=== PATIENT | male | born 1965 | race Caucasian/White ===

== ENCOUNTER → 2016-10-16 | Outpatient (CLI) | payer BC ==
--- NOTE | 2016-10-16 20:31 | CT ---
EXAMINATION TYPE: CT urogram wo/w con DATE OF EXAM: 10/16/2016 COMPARISON: 07/21/2010 HISTORY: Bilateral flank pain and penile pain. History of renal stones. CT DLP: 3059.00 mGycm CONTRAST: Performed and without and with IV Contrast, patient injected with 100 mL of Omnipaque 300. CT Urography was performed with unenhanced followed by enhanced images of the kidneys, ureters and ur inary bladder. Delayed images were obtained. 3d reconstruction was performed at a separate work sta tion. FINDINGS: KIDNEYS/BLADDER: No hydronephrosis. No nephrolithiasis. Simple cyst with Hounsfield unit measuremen t of less than 3 measures 2.8 cm in greatest dimension and is unchanged from prior examination. Urina ry bladder is grossly unremarkable. LUNG BASES-: No visible nodule. No infiltrate. LIVER/GB: No calcified gallstones. Scattered simple cysts are noted within the liver. Biliary tree is of normal caliber. PANCREAS: No inflammation. No distinct mass. SPLEEN: No splenic enlargement. No lesion seen. ADRENALS: No nodule. No thickening. BOWEL: Normal appendix. Normal bowel caliber. No inflammation. GENITAL ORGANS: No gross abnormality. LYMPH NODES: No greater than 1cm abdominal or pelvic lymph nodes are appreciated. AORTA: No significant abnormality. OSSEOUS STRUCTURES: No significant abnormality is seen. OTHER: Right inguinal fat-containing hernia. IMPRESSION: 1. Simple cyst left kidney. No significant abnormality to account for the patient's symptoms. Correla te clinically. 2. Fat-containing right inguinal hernia. 3. Simple appearing hepatic cysts.
== END | disposition home or self-care (01) ==
LOC: RADCTMAIN 18:18
PROVIDERS: ATTEND Urology
DX: N28.1 Cyst of kidney, acquired (principal); K40.90 Unilateral inguinal hernia, without obstruction or gangrene, not specified as recurrent; K76.89 Other specified diseases of liver
CPT/HCPCS: 74178; 74400; Q9967

== ENCOUNTER 2019-01-10 12:19 | Emergency (ER) | payer BC ==
[2019-01-10] MEDS ORDERED: KETOROLAC 30 MG/ML 1 ML VIAL IVP STA (12:35)
[2019-01-10] MEDS ORDERED: SODIUM CHLORIDE 0.9% 1,000 ML IV STA ×2 (12:35→14:41)
[2019-01-10] MEDS ORDERED: MORPHINE SULFATE 4 MG/ML SYRINGE IV STA (12:46)
--- NOTE | 2019-01-10 12:49 | ED ---
General Adult HPI - General Chief complaint: Urogenital Stated complaint: POSS KIDNEY STONE Time Seen by Provider: 01/10/19 12:35 Source: patient, family Mode of arrival: wheelchair Limitations: no limitations - History of Present Illness Initial comments: Dictation was produced using [employer] dictation software. please excuse any gramma tical, word or spelling errors. Chief Complaint: 53-year-old male past medical history of nephrolithiasis and hypertension presents with right-sided flank pain. History of Present Illness: Patient is 53-year-old male who presents with chief complaint of right-sided flank pain. Patient states his symptoms began on Friday. States that his pain started in the right flank area. States pain is constant. Distal nauseous however has no vomiting. Patient has a history of kidney stones. Patient states he has past for kidney stones prior to this. He has seen a urologist in the past. Patient states his symptoms today are very different because the pain radiates up his right back and sometimes goes into his neck. No constitutional symptoms. The ROS documented in this emergency department record has been reviewed and confirmed by me. Those systems with pertinent positive or negative responses have been documented in the HPI. All other systems are other negative and/or noncontributory. PHYSICAL EXAM: General Impression: Alert and oriented x3, acute distress secondary to pain HEENT: Normocephalic atraumatic, extra-ocular movements intact, pupils equal and reactive to light bilaterally, mucous membranes moist. Cardiovascular: Heart regular rate and rhythm, S1&S2 audible, no murmurs, rubs or gallops Chest: Lungs clear to auscultation bilaterally, no rhonchi, no wheeze, no rales Abdomen: Bowel sounds present, abdomen soft, non-tender, non-distended, no organomegaly Musculoskeletal: Pulses present and equal in all extremities, no peripheral edema, positive CVA pain Motor: no focal deficits noted Neurological: CN II-XII grossly intact, no focal motor or sensory deficits noted Skin: Intact with no visualized rashes ED course: 53-year-old male presents with right-sided flank pain. He has a strong history of kidney stones. States his symptoms are significantly different from his usual symptoms. Upon arrival shows findings within acceptable limits. Patient is in acute distress. Symptoms are considerably different this time. Patient last CT was several years ago. Given patient's symptoms believe he would benefit from computed tomography scan today.Laboratory evaluation obtained. CBC, metabolic panel is unremarkable. Computed tomography scan of the abdomen and pelvis shows a 3 mm distal right ureteral calculus with hydronephrosis and hydroureter. There is simple-appearing hepatic and renal cysts. Is also diverticulosis of the colon. Patient told that he has these cyst that needs to be follow-up with by his primary care physician. Patient presents that there is been progression of the cyst that appeared increased compared to CT from the past. Patient reevaluated at bedside with dramatic improvement of symptoms. They're strong clinical suspicion that patient had passed stone and given analgesia and intravenous fluids. Urine study is sent for culture. Patient advised to follow-up with his urologist upon discharge. EKG interpretation: Ventricular rate 65, normal sinus rhythm,. Interval 136, QRS 94, QTC 432. No VA prolongation, no QTC prolongation, no ST or T-wave changes noted. Overall, this EKG is unremarkable - Related Data Home Medications Medication Instructions Recorded Confirmed Losartan Potassium 100 mg PO DAILY 01/10/19 01/10/19 Multivitamins, Thera [Multivitamin 1 tab PO HS 01/10/19 01/10/19 (formulary)] Allergies Allergy/AdvReac Type Severity Reaction Status Date / Time No Known Allergies Allergy Verified 01/10/19 13:04 Review of Systems ROS Statement: Those systems with pertinent positive or pertinent negative responses have been documented in the HPI. ROS Other: All systems not noted in ROS Statement are negative. Past Medical History Past Medical History: Hypertension Additional Past Medical History / Comment(s): kidney stones History of Any Multi-Drug Resistant Organisms: None Reported Additional Past Surgical History / Comment(s): shoulder surgery Past Psychological History: No Psychological Hx Reported Smoking Status: Never smoker Past Alcohol Use History: None Reported Past Drug Use History: None Reported General Exam Limitations: no limitations Course Vital Signs 01/10/19 12:28 Temperature 97.7 F Pulse Rate 70 Respiratory 20 Rate Blood Pressure 112/84 O2 Sat by Pulse 96 Oximetry Medical Decision Making - Lab Data Result diagrams: 01/10/19 12:57 01/10/19 12:57 Lab Results 01/10/19 01/10/19 Range/Units 12:57 12:57 WBC 9.8 (3.8-10.6) k/uL RBC 5.28 (4.30-5.90) m/uL Hgb 15.3 (13.0-17.5) gm/dL Hct 45.8 (39.0-53.0) % MCV 86.7 (80.0-100.0) fL MCH 29.0 (25.0-35.0) pg MCHC 33.5 (31.0-37.0) g/dL RDW 12.1 (11.5-15.5) % Plt Count 246 (150-450) k/uL Neutrophils % 65 % Lymphocytes % 23 % Monocytes % 7 % Eosinophils % 2 % Basophils % 1 % Neutrophils # 6.4 (1.3-7.7) k/uL Lymphocytes # 2.3 (1.0-4.8) k/uL Monocytes # 0.7 (0-1.0) k/uL Eosinophils # 0.2 (0-0.7) k/uL Basophils # 0.1 (0-0.2) k/uL Sodium 140 (137-145) mmol/L Potassium 3.5 (3.5-5.1) mmol/L Chloride 104 (98-107) mmol/L Carbon Dioxide 27 (22-30) mmol/L Anion Gap 9 mmol/L BUN 13 (9-20) mg/dL Creatinine 0.99 (0.66-1.25) mg/dL Est GFR (CKD-EPI)AfAm >90 (>60 ml/min/1.73 sqM) Est GFR (CKD-EPI)NonAf 86 (>60 ml/min/1.73 sqM) Glucose 122 H (74-99) mg/dL Calcium 9.8 (8.4-10.2) mg/dL Total Bilirubin 1.2 (0.2-1.3) mg/dL AST 25 (17-59) U/L ALT 32 (21-72) U/L Alkaline Phosphatase 97 (38-126) U/L Total Protein 7.6 (6.3-8.2) g/dL Albumin 4.3 (3.5-5.0) g/dL Disposition Clinical Impression: Kidney stone on right side Disposition: HOME SELF-CARE Condition: Good Instructions (If sedation given, give patient instructions): Kidney Stones (ED) Is patient prescribed a controlled substance at d/c from ED?: No Referrals: Sophia Sheriff MD [Primary Care Provider] - 1-2 days Thomas Chase MD [STAFF PHYSICIAN] - 1-2 days Time of Disposition: 15:18
[2019-01-10 13:06] LABS: Basophils # (A) 0.1 k/uL (0-0.2); Basophils % (A) 1 %; Eosinophils # (A) 0.2 k/uL (0-0.7); Eosinophils % (A) 2 %; HCT 45.8 % (39.0-53.0); HGB 15.3 gm/dL (13.0-17.5); Lymphocytes # (A) 2.3 k/uL (1.0-4.8); Lymphocytes % (A) 23 %; MCHC 33.5 g/dL (31.0-37.0); MCV 86.7 fL (80.0-100.0); Monocytes # (A) 0.7 k/uL (0-1.0); Monocytes % (A) 7 %; Neutrophils # (A) 6.4 k/uL (1.3-7.7); Neutrophils % (A) 65 %; Platelet Count 246 k/uL (150-450); RBC 5.28 m/uL (4.30-5.90); RDW 12.1 % (11.5-15.5); WBC 9.8 k/uL (3.8-10.6)
[2019-01-10] MEDS ORDERED: HYDROmorphone 0.5 MG/0.5 ML SYRINGE IVP STA (13:12)
[2019-01-10 13:16] LABS: ALT 32 U/L (21-72); AST 25 U/L (17-59); African American GFR (CKD) >90 (>60 ml/min/1.73 sqM); Albumin 4.3 g/dL (3.5-5.0); Alkaline Phosphatase 97 U/L (38-126); Anion Gap 9 mmol/L; Blood Urea Nitrogen 13 mg/dL (9-20); Calcium 9.8 mg/dL (8.4-10.2); Carbon Dioxide 27 mmol/L (22-30); Chloride 104 mmol/L (98-107); Glucose 122 mg/dL (74-99); Potassium 3.5 mmol/L (3.5-5.1); Sodium 140 mmol/L (137-145); Total Bilirubin 1.2 mg/dL (0.2-1.3); Total Protein 7.6 g/dL (6.3-8.2)
--- NOTE | 2019-01-10 14:09 | CT ---
EXAMINATION TYPE: CT abdomen pelvis w con DATE OF EXAM: 01/10/2019 REFERENCE: Previous study dated 10/16/2016 HISTORY: flank pain HISTORY: Rt flank pain with hematuria CT DLP: 1513.4 mGy Automated exposure control for dose reduction was used. TECHNIQUE: Helical acquisition through the abdomen and pelvis was obtained following the oral ingesti on of without Oral Contrast and following intravenous administration of 100 mL of Isovue 300. The radha a was reformatted in axial, coronal and sagittal projections. FINDINGS: There is minimal dependent atelectasis at the lung bases. There is no pleural or pericardi al fluid. The heart is not enlarged. Within the abdomen, there are several stable hepatic cysts. The spleen and gallbladder are normal. Both adrenal glands are normal. There is a stable 2.6 cm cyst in the lower pole of the left kidney. There are smaller cysts in the ri ght kidney. There is hydronephrosis and hydroureter on the right. There is a 3 mm calculus in the distal right ur eter. There is no significant retroperitoneal, iliac or inguinal adenopathy. The bladder is not distended. There are scattered diverticula throughout the left side of the colon. There is no radiographic evide nce of diverticulitis. Appendix is normal. Small bowel loops are normal. There is no free fluid and no free air identified. There is facet arthropathy in the lower lumbar fac ets. IMPRESSION: 1. 3 MM DISTAL RIGHT URETERIC CALCULUS WITH MODERATE ASSOCIATED HYDRONEPHROSIS AND HYDROURETER. 2. SIMPLE APPEARING HEPATIC AND RENAL CYSTS. 3. UNCOMPLICATED DIVERTICULOSIS OF THE SIGMOID: THAN LEFT SIDE OF THE COLON. 5.
[2019-01-10 15:43] LABS: Appearance,Urine Clear (Clear); Bilirubin,Urine Negative (Negative); Blood,Urine Large (Negative); Calcium Oxalate Crystals,Urine Occasional /hpf; Color,Urine Yellow; Glucose,Urine (UA) Negative (Negative); Ketones,Urine Negative (Negative); Leukocyte Esterase,Urine Negative (Negative); Mucus,Urine Many /hpf; Nitrite,Urine Negative (Negative); Protein,Urine Trace (Negative); RBC,Urine >182 /hpf (0-5); Squamous Epithelial Cell,Urine 1 /hpf (0-4); Urobilinogen,Urine <2.0 mg/dL (<2.0)
[2019-01-10 15:44] LABS: Specific Gravity,Urine >1.050 (1.001-1.035)
[2019-01-10 16:23] VITALS: BP 115/59; PULSE 78; RESP 18; TEMP 98.3
== END 2019-01-10 16:16 | disposition home or self-care (01) ==
LOC: EC 12:19
DX: N13.2 Hydronephrosis with renal and ureteral calculous obstruction (principal); N28.1 Cyst of kidney, acquired; K57.30 Diverticulosis of large intestine without perforation or abscess without bleeding; K76.89 Other specified diseases of liver; I10 Essential (primary) hypertension; Z79.899 Other long term (current) drug therapy
CPT/HCPCS: 36415; 93005; 80053; 85025; 81001; 87040; 87086; 74177; 99284; 96374; 96375; 96361 ×2; J1885; J1170; Q9967

== ENCOUNTER → 2019-05-20 | Outpatient (CLI) | payer BC ==
--- NOTE | 2019-05-21 05:12 | CT ---
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 Delayed images through the kidneys were obtaine d. Coronal/sagittal reconstructions performed. CT DLP: 3611 mGycm Automated exposure control for dose reduction was used. FINDINGS: CHEST: Heart normal size without pericardial effusion. Aorta normal caliber with variant direct takeoff of the left vertebral artery directly from the aorti c arch. No thoracic lymphadenopathy by CT size criteria. A 7 mm peripheral right lower lobe pulmonary nodule, axial image 39. Mild biapical pleural-parenchymal scarring. No consolidation or pleural effusion. ABDOMEN: Redemonstrated multiple hepatic cysts measuring up to 2.7 cm. Portal venous system is patent. No bili salbador ductal dilatation. Gallbladder, adrenal glands, and pancreas appear within normal limits. Spleen mildly enlarged at 14.4 cm. Tiny anterior hilar splenule is unchanged. Nonobstructive 4 mm right renal calculus as well as bilateral extrarenal pelves. Posterior medial left kidney mid to lower pole, redemonstrated 1.8 cm cystic cortical lesion with thi n internal septation, unchanged back to 07/22/2009. No dilated small bowel, free fluid, or free air. There are some scattered prominent retroperitoneal lymph nodes measuring up to 7 mm are unchanged soni k to 07/22/2009. Additional scattered nonenlarged mesenteric lymph nodes. Normal appendix. No significant stool burden. No pericolonic inflammatory change. PELVIS: Bladder urine distended. Mild prostatic calcifications. Prostate gland measures 5.57 mm wide. No abno rmal fluid collection in the pelvis or pelvic lymphadenopathy. Small fat-containing direct right ingu inal hernia unchanged. No abnormal fluid collection in the pelvis or pelvic lymphadenopathy. BONES: Mild degenerative changes of the hips. Facet arthropathy lower lumbar spine. Severe endplate Schmorl' s node of T11 is unchanged from 01/10/2019. No osseous destructive process. IMPRESSION: 1. SOLITARY NONSPECIFIC 7 MM RIGHT LOWER LOBE PULMONARY NODULE. FOLLOW-UP RECOMMENDED. AGAIN, THIS IS NONSPECIFIC BUT A METASTATIC PULMONARY NODULE IS NOT ENTIRELY EXCLUDED AT THIS TIME. 2. NO ADDITIONAL SUSPICIOUS FINDINGS TO SUGGEST METASTATIC DISEASE IN THE CHEST, ABDOMEN, OR PELVIS. 3. NONOBSTRUCTIVE 4 MM RIGHT RENAL CALCULUS, MILD SPLENOMEGALY (14.4 CM), AND STABLE 1. 8 CM MILDLY C OMPLEX LEFT RENAL CYST BACK TO 07/22/2009 SUGGESTING A BENIGN ETIOLOGY. SMALL FAT-CONTAINING RIGHT INGU INAL HERNIA.
== END | disposition home or self-care (01) ==
LOC: RADCTMAIN 15:34
PROVIDERS: ATTEND Ophthalmology
DX: C69.30 Malignant neoplasm of unspecified choroid (principal); K40.90 Unilateral inguinal hernia, without obstruction or gangrene, not specified as recurrent; N20.0 Calculus of kidney; N28.1 Cyst of kidney, acquired; R91.1 Solitary pulmonary nodule; R16.1 Splenomegaly, not elsewhere classified
CPT/HCPCS: 71270; 74178; Q9967

== ENCOUNTER → 2019-08-27 | Outpatient (CLI) | payer BC | END | disposition home or self-care (01) | LOC: LABWHC1 14:51 | PROVIDERS: ATTEND Family Medicine | DX: Z11.59 Encounter for screening for other viral diseases (principal) ==

== ENCOUNTER → 2020-07-14 | Outpatient (CLI) | payer BC ==
--- NOTE | 2020-07-14 12:30 | US ---
EXAMINATION TYPE: US liver DATE OF EXAM: 07/14/2020 COMPARISON: 05/20/2019 CT CLINICAL HISTORY: 54-year-old male C69.32 Malignant neoplasm of left choroid. History of cancer of th e eye. TECHNIQUE: Multiple sonographic images of the right upper quadrant are obtained. FINDINGS: EXAM MEASUREMENTS: Liver Length: 16.8 cm Gallbladder Wall: 0.1 cm CBD: 0.5 cm Right Kidney: 13.2 x 5.6 x 4.9 cm Pancreas: Appears echogenic in appearance. Not well visualized due to overlying bowel gas. Only sma ll portions of the pancreatic body are seen. Liver: There are a few scattered cysts, largest on the right measuring 2.5 x 2.0 x 2.6 cm. Largest on the left measures 1.4 x 1.6 x 1.3 cm Gallbladder: Echogenic focus adjacent to wall in fundal region = 4.4 mm. No abnormal distention, wal l thickening, surrounding fluid, or shadowing calculi. Evidence for sonographic Mendoza's sign: neg CBD: wnl Right Kidney: Upper pole cystic lesion - 1.3 x 1.3 x 1.2 cm. No hydronephrosis. IMPRESSION: 1. A few scattered hepatic cysts measuring up to 2.6 cm. 2. A 4 mm mural based echogenic focus along the fundus of the gallbladder likely a gallbladder wall p olyp. 6 month follow-up ultrasound to reassess. 3. No shadowing gallstones or biliary ductal dilatation.
== END | disposition home or self-care (01) ==
LOC: RADUSWWP 08:16
PROVIDERS: ATTEND Ophthalmology
DX: C69.32 Malignant neoplasm of left choroid (principal); K76.89 Other specified diseases of liver
CPT/HCPCS: 76705

== ENCOUNTER → 2021-02-16 | Outpatient (CLI) | payer BC ==
--- NOTE | 2021-02-16 15:12 | US ---
EXAMINATION TYPE: US liver DATE OF EXAM: 02/16/2021 COMPARISON: CT May 20, 2019. Ultrasound liver July 14, 2020 CLINICAL HISTORY: C69.32 Malignant neoplasm of left choroid. hx liver cysts. EXAM MEASUREMENTS: Liver Length: 15.7 cm Gallbladder Wall: 0.1 cm CBD: 0.5 cm Right Kidney: 11.5 x 4.4 x 5.6 cm Pancreas: Tail obscured by overlying bowel gas, heterogeneously hyperechoic seen appear echogenic in appearance. Liver: Coarse. Cystic lesions seen throughout liver. Largest on right = 2.4 x 2.0 x 2[address] on left, cluster vs septation = 1.6 x 1.4 x 1.7 cm Gallbladder: Echogenic lesion seen adjacent to wall = 0.4 x 0.3 cm Evidence for sonographic Mendoza's sign: neg CBD: wnl Right Kidney: upper pole cystic lesion = 1.5 x 1.5 x 1.5 cm Visualized pancreas within normal limits. Visualized liver heterogeneously hyperechoic. Evaluation fo r focal masses suboptimal due to the heterogeneity. Simple appearing thin-walled cysts in the liver o n CT less well seen on ultrasound. There is 4 mm nonshadowing hyperechoic focus or polyp suspected in the gallbladder. No mobile shadowing intraluminal gallstones. Simple appearing 1.5 cm thin-walled cy st in right kidney upper pole level thought present. No right-sided hydronephrosis. IMPRESSION: Heterogeneous hyperechoic appearance of liver consistent with diffuse fatty infiltration and/or less likely underlying hepatocellular disease redemonstrated. This makes evaluation for focal masses suboptimal. Simple appearing thin-walled cysts on CT involving anomaly left hepatic lobe are l ess well seen on ultrasound images saved.
== END | disposition home or self-care (01) ==
LOC: RADUSWWP 13:25
PROVIDERS: ATTEND Ophthalmology
DX: C69.32 Malignant neoplasm of left choroid (principal)
CPT/HCPCS: 76705

== ENCOUNTER → 2021-06-01 | Outpatient (CLI) | payer BC ==
[2021-06-01 14:43] LABS: Basophils # (A) 0.07 X 10*3/uL (0.00-0.10); Basophils % (A) 1.1 %; Eosinophils # (A) 0.33 X 10*3/uL (0.04-0.35); Eosinophils % (A) 5.4 %; HCT 46.5 % (39.6-50.0); HGB 15.7 g/dL (13.0-17.0); Immature Grans, Automated 0.5 %; Lymphocytes # (A) 1.51 X 10*3/uL (0.90-5.00); Lymphocytes % (A) 24.6 %; MCH 29.6 pg (27.0-32.0); MCHC 33.8 g/dL (32.0-37.0); MCV 87.6 fL (80.0-97.0); Mean Platelet Volume 10.7 fL (9.5-12.2); Monocytes # (A) 0.54 X 10*3/uL (0.20-1.00); Monocytes % (A) 8.8 %; NRBC Per 100 WBC 0 /100 WBCS (0.0-0.0); Neutrophils # (A) 3.65 X 10*3/uL (1.80-7.70); Neutrophils % (A) 59.6 %; Platelet Count 223 X 10*3/uL (140-440); RBC 5.31 X 10*6/uL (4.40-5.60); RDW 11.8 % (11.5-14.5); WBC 6.13 X 10*3/uL (4.50-10.00)
[2021-06-01 15:03] LABS: ALT 27 U/L (10-49); AST 23 U/L (14-35); African American GFR (CKD) 110.3 (60.0-200.0); Albumin 4.3 g/dL (3.8-4.9); Albumin/Globulin Ratio 1.54 (1.60-3.17); Alkaline Phosphatase 67 U/L (41-126); BUN/Creat Ratio 16.33 Ratio (12.00-20.00); Blood Urea Nitrogen 14.7 mg/dL (9.0-27.0); Calcium 9.7 mg/dL (8.7-10.3); Carbon Dioxide 25.6 mmol/L (20.0-27.5); Chloride 102 mmol/L (96-109); Chol/HDL Ratio 4.59 Ratio; Globulin 2.8 g/dL (1.6-3.3); Glucose 110 mg/dL (70-110); LDL Cholesterol,Calculated 133.1 mg/dL (0.0-131.0); Non-African American GFR(CKD) 95.1 (60.0-200.0); Sodium 140 mmol/L (135-145); Total Protein 7.1 g/dL (6.2-8.2)
== END | disposition home or self-care (01) ==
LOC: LABWHC1 08:10
PROVIDERS: ATTEND Family Medicine
DX: Z12.5 Encounter for screening for malignant neoplasm of prostate (principal); Z13.29 Encounter for screening for other suspected endocrine disorder; I10 Essential (primary) hypertension; E78.00 Pure hypercholesterolemia, unspecified; Z72.9 Problem related to lifestyle, unspecified
CPT/HCPCS: 86803; 80053; 80061; 84443; 85025; 36415; G0103

== ENCOUNTER 2021-08-26 08:55 | Emergency (ER) | payer BC ==
[2021-08-26 09:01] VITALS: BP 149/77; PULSE 72; RESP 18; TEMP 98
[2021-08-26] MEDS ORDERED: SODIUM CHLORIDE 0.9% 1,000 ML IV STA (09:10)
[2021-08-26] MEDS ORDERED: KETOROLAC 15 MG/ML 1 ML VIAL IVP STA (09:10)
[2021-08-26] MEDS ORDERED: HYDROmorphone 0.5 MG/0.5 ML SYRINGE IVP STA (09:19)
--- NOTE | 2021-08-26 09:22 | ED ---
Abdominal Pain HPI - General Chief Complaint: Abdominal Pain Stated Complaint: Kidney Stone Time Seen by Provider: 08/26/21 09:04 Source: patient, family, RN notes reviewed Mode of arrival: ambulatory Limitations: no limitations - History of Present Illness Initial Comments: This is a 56-year-old male who presents to the emergency department for sudden o nset lower abdominal pain that began around 0800. Patient states when he woke up he had the pain just above his penis. He does note some intermittent left pelvic and scrotal pain over the last couple of weeks. He does have a history of kidney stones, however this always causes pain in the right lower back. Denies any fevers, nausea, vomiting, dysuria, hematuria, or history of hernias. His states that she has never seen him like this before. Denies any changes in urinary or bowel habits. Denies any fevers, chills, sore throat, cough, dyspnea, chest pain, palpitations, nausea, vomiting, diarrhea, back pain, or headaches. MD Complaint: abdominal pain Location: suprapubic - Related Data Home Medications Medication Instructions Recorded Confirmed Losartan Potassium 100 mg PO DAILY 01/10/19 01/10/19 Multivitamins, Thera [Multivitamin 1 tab PO HS 01/10/19 01/10/19 (formulary)] Previous Rx's Medication Instructions Recorded HYDROcodone/APAP 5-325MG [[place] 1 tab PO Q6HR PRN 3 Days #12 tab 08/26/21 5-325] Allergies Allergy/AdvReac Type Severity Reaction Status Date / Time morphine Allergy Hallucinati Verified 08/26/21 09:02 ons Review of Systems ROS Statement: Those systems with pertinent positive or pertinent negative responses have been documented in the HPI. ROS Other: All systems not noted in ROS Statement are negative. Past Medical History Past Medical History: Hypertension Additional Past Medical History / Comment(s): kidney stones History of Any Multi-Drug Resistant Organisms: None Reported Additional Past Surgical History / Comment(s): shoulder surgery Past Psychological History: No Psychological Hx Reported Smoking Status: Never smoker Past Alcohol Use History: None Reported Past Drug Use History: None Reported General Exam Limitations: no limitations General appearance: alert, in distress Head exam: Present: atraumatic, normocephalic, normal inspection Respiratory exam: Present: normal lung sounds bilaterally. Absent: respiratory distress, wheezes, rales, rhonchi, stridor Cardiovascular Exam: Present: regular rate, normal rhythm, normal heart sounds. Absent: systolic murmur, diastolic murmur, rubs, gallop, clicks GI/Abdominal exam: Present: soft, normal bowel sounds. Absent: distended, tenderness, guarding, rebound, rigid exam: Present: normal inspection, circumcision. Absent: testicular tenderness, urethral discharge, scrotal swelling Expanded exam: Cremasteric Reflex Present: Left, Right Neurological exam: Present: alert, oriented X3, CN II-XII intact Psychiatric exam: Present: normal affect, normal mood Skin exam: Present: warm, dry, intact, normal color. Absent: rash Course Vital Signs 08/26/21 08:58 Temperature 98 F Pulse Rate 72 Respiratory 18 Rate Blood Pressure 149/77 O2 Sat by Pulse 97 Oximetry Medical Decision Making - Medical Decision Making This is a 56-year-old male presents emergency Department with suprapubic pain. Patient was immediately evaluated for testicular torsion, cremasteric reflexes were present and the TWIST score was 0. Lab work, urinalysis, and ultrasound obtained. Patient given a liter bolus of normal saline and medication to control pain. Scrotal ultrasound revealed a left varicocele and right hydrocele. Lab work and urinalysis were unremarkable. Patient states symptoms improved following pain medication. Urology follow-up listed on the patient's discharge form. He is advised to contact them for further evaluation and management. Also instructed him to elevate this testicles and also ibuprofen and Tylenol as needed for pain. 3 day Rx for [place] sent to the pharmacy, advised and uses sparingly when he has significant pain flareups. Return precautions reviewed in depth, the patient is instructed to return to the emergency department with any new, worsening, or concerning symptoms. Patient verbalized understanding. This case was discussed in detail with the attending ED physician. Presentation, findings, and treatment plan discussed in detail as well. - Lab Data Result diagrams: 08/26/21 09:30 08/26/21 09:30 Lab Results 08/26/21 08/26/21 08/26/21 Range/Units 09:30 09:30 09:30 WBC 5.6 (3.8-10.6) k/uL RBC 5.33 (4.30-5.90) m/uL Hgb 15.9 (13.0-17.5) gm/dL Hct 46.6 (39.0-53.0) % MCV 87.4 (80.0-100.0) fL MCH 29.9 (25.0-35.0) pg MCHC 34.2 (31.0-37.0) g/dL RDW 12.5 (11.5-15.5) % Plt Count 180 (150-450) k/uL MPV 7.7 Neutrophils % 61 % Lymphocytes % 27 % Monocytes % 4 % Eosinophils % 6 % Basophils % 1 % Neutrophils # 3.4 (1.3-7.7) k/uL Lymphocytes # 1.5 (1.0-4.8) k/uL Monocytes # 0.2 (0-1.0) k/uL Eosinophils # 0.4 (0-0.7) k/uL Basophils # 0.0 (0-0.2) k/uL Sodium 140 (137-145) mmol/L Potassium 3.6 (3.5-5.1) mmol/L Chloride 105 (98-107) mmol/L Carbon Dioxide 28 (22-30) mmol/L Anion Gap 7 mmol/L BUN 16 (9-20) mg/dL Creatinine 0.80 (0.66-1.25) mg/dL Est GFR (CKD-EPI)AfAm >90 (>60 ml/min/1.73 sqM) Est GFR (CKD-EPI)NonAf >90 (>60 ml/min/1.73 sqM) Glucose 124 H (74-99) mg/dL Calcium 8.8 (8.4-10.2) mg/dL Total Bilirubin 0.9 (0.2-1.3) mg/dL AST 26 (17-59) U/L ALT 25 (4-49) U/L Alkaline Phosphatase 59 (38-126) U/L Total Protein 7.2 (6.3-8.2) g/dL Albumin 4.3 (3.5-5.0) g/dL Amylase 75 (30-110) U/L Lipase 58 (23-300) U/L Urine Color Yellow Urine Appearance Clear (Clear) Urine pH 6.5 (5.0-8.0) Ur Specific [place] 1.022 (1.001-1.035) Urine Protein Trace H (Negative) Urine Glucose (UA) Negative (Negative) Urine Ketones Negative (Negative) Urine Blood Negative (Negative) Urine Nitrite Negative (Negative) Urine Bilirubin Negative (Negative) Urine Urobilinogen <2.0 (<2.0) mg/dL Ur Leukocyte Esterase Negative (Negative) - Radiology Data Radiology results: report reviewed, image reviewed Disposition Clinical Impression: Left varicocele Disposition: HOME SELF-CARE Additional Instructions: Return to the emergency department with any new, worsening, or concerning symptoms. Elevate the scrotum and contact urology tomorrow for an appointment for the varicocele. Alternate with Tylenol and ibuprofen for pain relief. Take the [place] sparingly when the pain is the most severe. Prescriptions: HYDROcodone/APAP 5-325MG [[place] 5-325] 1 tab PO Q6HR PRN 3 Days #12 tab PRN Reason: Pain Is patient prescribed a controlled substance at d/c from ED?: Yes When asked, does pt state using other controlled substances?: No If prescribed controlled substance>3 days was MAPS reviewed?: Prescribed <3 Days Referrals: Sophia Sheriff MD [Primary Care Provider] - 1-2 days Kostas Lin MD [STAFF PHYSICIAN] - 1-2 days
[2021-08-26 09:50] LABS: Basophils % (A) 1 %; Eosinophils # (A) 0.4 k/uL (0-0.7); Eosinophils % (A) 6 %; HCT 46.6 % (39.0-53.0); HGB 15.9 gm/dL (13.0-17.5); Lymphocytes # (A) 1.5 k/uL (1.0-4.8); Lymphocytes % (A) 27 %; MCH 29.9 pg (25.0-35.0); MCHC 34.2 g/dL (31.0-37.0); MCV 87.4 fL (80.0-100.0); Mean Platelet Volume 7.7; Monocytes # (A) 0.2 k/uL (0-1.0); Monocytes % (A) 4 %; Neutrophils # (A) 3.4 k/uL (1.3-7.7); Neutrophils % (A) 61 %; Platelet Count 180 k/uL (150-450); RBC 5.33 m/uL (4.30-5.90); RDW 12.5 % (11.5-15.5); WBC 5.6 k/uL (3.8-10.6)
[2021-08-26 09:59] LABS: ALT 25 U/L (4-49); AST 26 U/L (17-59); African American GFR (CKD) >90 (>60 ml/min/1.73 sqM); Albumin 4.3 g/dL (3.5-5.0); Alkaline Phosphatase 59 U/L (38-126); Amylase 75 U/L (30-110); Anion Gap 7 mmol/L; Blood Urea Nitrogen 16 mg/dL (9-20); Calcium 8.8 mg/dL (8.4-10.2); Carbon Dioxide 28 mmol/L (22-30); Chloride 105 mmol/L (98-107); Glucose 124 mg/dL (74-99); Lipase 58 U/L (23-300); Non-African American GFR(CKD) >90 (>60 ml/min/1.73 sqM); Potassium 3.6 mmol/L (3.5-5.1); Sodium 140 mmol/L (137-145); Total Bilirubin 0.9 mg/dL (0.2-1.3); Total Protein 7.2 g/dL (6.3-8.2)
[2021-08-26 10:26] LABS: Appearance,Urine Clear (Clear); Bilirubin,Urine Negative (Negative); Blood,Urine Negative (Negative); Color,Urine Yellow; Glucose,Urine (UA) Negative (Negative); Ketones,Urine Negative (Negative); Leukocyte Esterase,Urine Negative (Negative); Nitrite,Urine Negative (Negative); PH, Urine 6.5 (5.0-8.0); Protein,Urine Trace (Negative); Specific Gravity,Urine 1.022 (1.001-1.035); Urobilinogen,Urine <2.0 mg/dL (<2.0)
--- NOTE | 2021-08-26 10:33 | US ---
EXAMINATION TYPE: US bladder DATE OF EXAM: 08/26/2021 COMPARISON: NONE CLINICAL HISTORY: acute onset left scrotal and pelvic pain. Pelvic pain x couple hours EXAM MEASUREMENTS: Bladder is anechoic. Color Doppler performed to assess ureteral jets. Bilateral Jets seen: yes IMPRESSION: No abnormality by ultrasound.
--- NOTE | 2021-08-26 10:42 | US ---
EXAMINATION TYPE: US scrotum with doppler. Grayscale and color Doppler Duplex imaging performed of t tod scrotum. DATE OF EXAM: 08/26/2021 COMPARISON: NONE CLINICAL HISTORY: acute onset left scrotal and pelvic pain. Intermittent left testicular pain x 1 wee k EXAM MEASUREMENTS: TESTICLES: Right Testicle: 3.9 x 1.9 x 2.6 cm Left Testicle: 3.4 x 1.9 x 2.2 cm EPIDIDYMIS HEAD: Right Epididymis: 1.0 cm Left Epididymis: 1.1 cm Doppler performed to assess for testicular vascularity; good bilateral color flow and waveforms are s een. There is no evidence of testicular torsion. Presence of hydroceles: right 1.7cm Presence of varicoceles: prominent vessels lateral to left testicle IMPRESSION: 1. Small right hydrocele. 2. Left varicocele
== END 2021-08-26 11:58 | disposition home or self-care (01) ==
LOC: EC 08:55
DX: I86.1 Scrotal varices (principal); I10 Essential (primary) hypertension; Z79.899 Other long term (current) drug therapy
CPT/HCPCS: 36415; 80053; 82150; 83690; 85025; 81003; 93975; 76870; 76857; 99284; 96374; 96375; 96361; J1885; J1170

== ENCOUNTER → 2021-09-17 | Outpatient (CLI) | payer BC ==
--- NOTE | 2021-09-17 15:52 | US ---
EXAMINATION TYPE: US kidneys/renal and bladder DATE OF EXAM: 09/17/2021 COMPARISON: NONE CLINICAL HISTORY: N20.0 CALCULUS OF KIDNEY. Hx of stones EXAM MEASUREMENTS: Right Kidney: 13.6 x 6.5 x 5.3 cm Left Kidney: 13.7 x 5.7 x 6.1 cm Right Kidney: Simple cyst in the superior pole measuring 1.4 x 1.3 x 1.2 cm Left Kidney: No hydronephrosis or masses seen Bladder: wnl Bilateral Jets seen: Yes IMPRESSION: 1. Right renal cyst
== END | disposition home or self-care (01) ==
LOC: RADUSWWP 15:01
PROVIDERS: ATTEND Urology
DX: N28.1 Cyst of kidney, acquired (principal)
CPT/HCPCS: 76770

== ENCOUNTER → 2022-02-01 | Outpatient (CLI) | payer BC ==
--- NOTE | 2022-02-01 10:27 | US ---
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 h/o left eye cancer, known liver and gilbert al cysts, no symptoms TECHNIQUE: Multiple sonographic images of the right upper quadrant are obtained. FINDINGS: EXAM MEASUREMENTS: Liver Length: 17.1 cm Gallbladder Wall: 0.2 cm CBD: 0.5 cm Right Kidney: 13.2 x 4.9 x 6.0 cm PACKAGER NOTES:liver sits high in ribcage that can limit views Pancreas: not seen due to bowel gas Liver: 4.2 x 2.1 x 3.0cm cyst seen right dome, 1.2 x 1.1 x 1.5cm left lobe cyst Gallbladder: wnl Evidence for sonographic Mendoza's sign: no CBD: wnl Right Kidney: 1.5 x 1.5 x 1.2cm mid pole cyst IMPRESSION: Hepatic and renal cysts as noted. No solid mass is detected.
== END | disposition home or self-care (01) ==
LOC: RADUSWWP 08:15
PROVIDERS: ATTEND Ophthalmology
DX: C69.32 Malignant neoplasm of left choroid (principal); N28.1 Cyst of kidney, acquired; K76.89 Other specified diseases of liver
CPT/HCPCS: 76705

== ENCOUNTER → 2023-02-14 | Outpatient (CLI) | payer BC ==
--- NOTE | 2023-02-14 10:03 | US ---
EXAMINATION TYPE: US liver DATE OF EXAM: 02/14/2023 COMPARISON: NONE CLINICAL INDICATION: Male, 57 years old with history of C62.32 MALIGNANT NEOPLASM OF LEFT CHOROID; LT eye cancer 2 yrs ago, follow up TECHNIQUE: Multiple sonographic images of the right upper quadrant are obtained. FINDINGS: EXAM MEASUREMENTS: Liver Length: 15.8 cm Gallbladder Wall: 0.1 cm CBD: 0.3 cm Right Kidney: 12.4x5.0x5.6 cm CLOTH MEASURER MACHINE NOTES: Pancreas: Tail obscured by overlying bowel gas Liver: several cystic areas again seen. Most prominent in each lobe again measured. Left: 1.2x1.3x1.6cm Right: 2.6x1.8x2.8cm Gallbladder: 0.5x0.2x0.5cm echogenic area noted at anterior GB wall. polyp vs. other Evidence for sonographic Mendoza's sign: No CBD: wnl Right Kidney: Upper pole cyst again seen: 1.5x1.6x1.6cm. Several small subcentimeter echogenic shado wing foci noted measuring up to 0.2cm. Pt. has known kidney stones some exam limitations due to bowel and body habitus IMPRESSION: 1. Cystic areas seen throughout the liver. 2. Adherent gallstone versus polyp. 3. Nephrolithiasis.
[2023-02-14 16:23] LABS: ALT 23 U/L (10-49); AST 20 U/L (14-35); LDL Cholesterol,Calculated 152.9 mg/dL (0.0-131.0)
== END | disposition home or self-care (01) ==
LOC: RADUSWWP 08:49
PROVIDERS: ATTEND Ophthalmology
DX: C69.32 Malignant neoplasm of left choroid (principal); E78.00 Pure hypercholesterolemia, unspecified; N20.0 Calculus of kidney; K76.89 Other specified diseases of liver
CPT/HCPCS: 76705; 80061; 84450; 84460

== ENCOUNTER → 2023-08-28 | Outpatient (CLI) | payer BC ==
[2023-08-28 11:55] VITALS: BP 117/78; PULSE 98; RESP 16; TEMP 98.2
--- NOTE | 2023-08-28 12:16 | P.SLEEP ---
History of Present Illness DATE: 08/28/2023 CONSULTATION/NEW PATIENT EVALUATION HISTORY OF PRESENT ILLNESS/SLEEP-WAKE EVALUATION: 58-year-old gentleman had be en evaluated in the sleep center for possible obstructive sleep apnea hypopnea syndrome. SLEEP SCHEDULE: Usually sleep schedule from 8 PM to 4 AM on weekdays and from 10:30 PM to 9 AM on weekend. FALLING ASLEEP: No problems with falling asleep. DURING SLEEP: Patient has loud snoring and witnessed episodes of stop breathing during the sleep by his . Patient wakes up from sleep 2 times with nocturia. No history of hypnogogical hallucinations, sleep paralysis, or cataplexy. DURING THE DAY/WAKE STATE: []. [place] sleepiness scale is 7. Usually patient does not take naps. PAST MEDICAL HISTORY: Hypertension, hyperlipidemia, left eye cancer with status post radiation therapy. PAST SURGICAL HISTORY: Please see below MEDICATIONS: Please see below. SOCIAL HISTORY: Please see below. FAMILY HISTORY: Please see below. REVIEW OF SYSTEMS: Loud snoring, awakenings from sleep. No fevers. No double vision. No recent chest pain. No shortness of breath. No abdominal pain. No blee ding episodes. No blood in urine. No seizure episodes. PHYSICAL EXAMINATION: GENERAL: A pleasant patient without any distress. VITAL SIGNS: Please see below, weight 228 pounds, BMI 28.8. HEENT: PERRLA, EOMI. Evaluation of oropharynx showed tongue protrudes midline, low position of soft palate Mallampati 2, short distance between soft palate and posterior pharyngeal wall. NECK: Supple. No JVD. Thyroid is not palpable. 16.5 inches in circumference. LUNGS: Clear to percussion and to auscultation. Good air exchange. No wheezing or rhonchi. HEART: S1, S2 regular. No murmurs, gallops or rubs. ABDOMEN: Soft and nontender. Bowel sounds are present. No organomegaly appreciated. EXTREMITIES: No clubbing or cyanosis. SEDIMENTATIONIST: Awake, alert, and oriented x3. Cranial nerves 2 to 7 intact. There is no fasciculation or atrophy noted. No focal deficits observed. ASSESSMENT: 1. Loud snoring, witnessed episodes of stop breathing during the sleep, awakenings from sleep with nocturia. Obstructive sleep apnea hypopnea syndrome. 2. Hypertension. 3. Hyperlipidemia. 4. History of left eye cancer treated by radiation therapy in 2020. 5 status post surgery for right elbow in 2021. PLAN: 1. Home sleep apnea test for evaluation of patient's breathing during sleep. 2. Following plan after reading sleep study. 3. Preferable position during sleep on the side. 4. No driving if patient feels any sleepiness. Patient is aware of civil and criminal liability for unsafe driving. 5. Sleep hygiene with regular sleep time for at least 7.5-8 hours. 6. Watching weight. Thank you very much for referring this patient for consultation. Sincerely, Reno Roman MD, PhD, FAASM. Diplomat of [place] [employer], Sleep Medicine Board by [place] [employer] [place] [employer] Toggle Press Operator of [facility] [place] Past Medical History Past Medical History: Hypertension Additional Past Medical History / Comment(s): kidney stones History of Any Multi-Drug Resistant Organisms: None Reported Additional Past Surgical History / Comment(s): L shoulder surgery Past Psychological History: No Psychological Hx Reported Smoking Status: Never smoker Past Alcohol Use History: None Reported Past Drug Use History: None Reported Medications and Allergies Home Medications Medication Instructions Recorded Confirmed Type Losartan Potassium 100 mg PO DAILY 01/10/19 08/28/23 History Multivitamins, Thera [Multivitamin 1 tab PO HS 01/10/19 08/28/23 History (formulary)] HYDROcodone/APAP 5-325MG [[place] 1 tab PO Q6HR PRN 3 Days #12 tab 08/26/21 Rx 5-325] Rosuvastatin Calcium 5 mg PO DAILY 08/28/23 08/28/23 History Allergies Allergy/AdvReac Type Severity Reaction Status Date / Time morphine Allergy Hallucinati Verified 08/26/21 09:02 ons Physical Exam Vitals: Vital Signs Temp Pulse Resp BP Pulse Ox 08/28/23 11:53 98.2 F 98 16 117/78 95 Intake and Output 08/27/23 08/28/23 08/28/23 22:59 06:59 14:59 Other: Weight 103.419 kg Sleep Note - Sleep Data ESS Total: 7 - Sleep Note Sleep Note: Temperature: 98.2 F Pulse Rate: 98 Respiratory Rate: 16 Blood Pressure: 117/78 SpO2: 95 Height: 6 ft 2.5 in Weight: 103.419 kg BMI: Neck Circumference: 16.5
== END ==
LOC: 3 N SLEEP 11:30
PROVIDERS: ATTEND Internal Medicine
DX: G47.33 Obstructive sleep apnea (adult) (pediatric) (principal); I10 Essential (primary) hypertension; E78.5 Hyperlipidemia, unspecified; Z98.890 Other specified postprocedural states; Z85.840 Personal history of malignant neoplasm of eye; Z92.3 Personal history of irradiation; Z88.5 Allergy status to narcotic agent; Z79.899 Other long term (current) drug therapy
CPT/HCPCS: 99211

== ENCOUNTER → 2023-10-01 | Outpatient (CLI) | payer BC ==
--- NOTE | 2023-10-02 10:29 | P.PCN ---
Description of Procedure: CLINICAL: A home sleep apnea test has been done for confirmation of possible obstructive sleep apnea-hypopnea syndrome. DESCRIPTION OF PROCEDURE: RESULTS: Recording time was 7 hours 13 minutes. Evaluation time was 6 hours 56 minutes. Evaluation time is sufficient for making conclusion about results of the test. Raw data of sleep recording has been reviewed and is adequate. Respiratory channel showed 499 apneas and 14 hypopneas. Apnea-hypopnea index was 73.8 per hour. Pulse rate in the range between minimum 60 to, maximum 113, average 86 by computer calculation. Lowest desaturation was 69%. IMPRESSION: 1. Extremely Severe Obstructive Sleep Apnea Hypopnea Syndrome with severe oxygen desaturation. Please see other impressions from consultation. PLAN: 1. The patient should have PAP titration for correction of respiratory abnormallities during sleep. 2. Sleep hygiene with regular time in bed for at least 8 hours.. 3. Watching and losing weight. 4. No driving if feeling any sleepiness. Thank you very much for allowing me to participate in the management of your patient. Sincerely, Reno Roman MD, PhD, FAASM Diplomat of [place] [employer] Sleep Medicine Board of [place] [employer] Manager Manufacturing of [facility] [place] cc:Sophia Sheriff MD
== END ==
LOC: 3 N SLEEP 10:47
PROVIDERS: ATTEND Internal Medicine
DX: G47.33 Obstructive sleep apnea (adult) (pediatric) (principal); G47.36 Sleep related hypoventilation in conditions classified elsewhere; Z88.5 Allergy status to narcotic agent

== ENCOUNTER → 2024-07-21 | Outpatient (CLI) | payer BC ==
[2024-07-21 16:53] VITALS: BP 134/83; PULSE 78; RESP 16; TEMP 97.8
--- NOTE | 2024-07-21 17:23 | P.PROGSL ---
Subjective DATE: 07/21/2024 FOLLOW UP VISIT. Patient with obstructive sleep apnea hypopnea syndrome return to sleep center for follow-up visit. Recently patient had sleep study which documented obstructive sleep apnea hypopnea syndrome. Patient was initiated on PAP therapy and today is first visit after treatment was started. I explained results of the sleep studies to the patient in details. Patient was able to use PAP equipment every night for the whole night. The patient does not have significant problems with PAP pressure and humidification. Patient is using fullface mask and has significant leak from the upper part of the mask. [place] sleepiness scale is 2, which is normal. I checked information from PAP unit. BPAP unit pressure maximal inspiratory pressure 23, minimal expiratory pressure 10, pressure support 4, average pressure 15/11 cm H2O. Usage is 100% for more then 4 hours, average 70 hours per night. Leak is increased to 42.1 l/m. Apnea Hypopnea Index is 1.8, which is normal. MEDICATIONS: Please see below During physical exam: GENERAL: A pleasant patient without any distress. VITAL SIGNS: Please see below, weight 243.4 pounds. HEENT: PERRLA, EOMI.low position of soft palate, Mallapati 2 . NECK: Supple. No JVD. LUNGS: Clear to percussion and to auscultation. Good air exchange. No wheezing or rhonchi. HEART: S1, S2 regular. ABDOMEN: Soft and nontender.[] EXTREMITIES: No clubbing or cyanosis. WILDLAND FIRE OPERATIONS SPECIALIST: Awake, alert, and oriented x3. No focal deficit. Impressions: 1. Extremely severe obstructive sleep apnea-hypopnea syndrome with original apnea hypopnea index 73.8. Patient demonstrated great compliance with treatment, benefiting from treatment. 2. Hypertension. 3. Hyperlipidemia. 4. History of left eye cancer treated by radiation therapy in 2020. 5. Status post surgery for right elbow in 2021. Plan: 1. Continue using PAP equipment every night for the whole night. Patient will try Lisa view mask. 2. To change air filter at least 1-2 times per month. 3. PAP unit should stay lower then position of the head. 4. Advised patient to remove all remaining water from humidifier canister daily and make it dry after each usage. Refill canister with fresh distilled water before each usage. 5. Sleep hygiene with regular time in bed for at least 8 hours. 6. Precautions related to driving. No driving if feel any sleepiness. 7. I will maintain prescription for PAP supplies including mask, tube, filters. 8. Follow up visit in 8 months or earlier if patient has any problems. 9. Watching weight. Thank you very much for allowing me to participate in the management of your patient. Reno Roman MD, PhD, FAASM. Diplomat of [place] [employer], Sleep Medicine Board by [place] [employer] Groundskeeper Supervisor of [facility] [place] Objective - Vital Signs Vital Signs: Vital Signs Temp 97.8 F 07/21/24 16:53 Pulse 78 07/21/24 16:53 Resp 16 07/21/24 16:53 BP 134/83 07/21/24 16:53 Pulse Ox 96 07/21/24 16:53 FiO2 Intake & Output 07/20/24 07/21/24 07/21/24 18:59 06:59 18:59 Weight 110.336 kg Home Medications: Home Medications Medication Instructions Recorded Confirmed Type Losartan Potassium 100 mg PO DAILY 01/10/19 08/28/23 History Multivitamins, Thera [Multivitamin 1 tab PO HS 01/10/19 08/28/23 History (formulary)] HYDROcodone/APAP 5-325MG [[place] 1 tab PO Q6HR PRN 3 Days #12 tab 08/26/21 Rx 5-325] Rosuvastatin Calcium 5 mg PO DAILY 08/28/23 08/28/23 History
== END ==
LOC: 3 N SLEEP 16:39
PROVIDERS: ATTEND Internal Medicine
DX: G47.33 Obstructive sleep apnea (adult) (pediatric) (principal); I10 Essential (primary) hypertension; E78.5 Hyperlipidemia, unspecified; Z92.3 Personal history of irradiation; Z98.890 Other specified postprocedural states; Z88.5 Allergy status to narcotic agent; Z99.89 Dependence on other enabling machines and devices
CPT/HCPCS: 99212

== ENCOUNTER → 2024-08-09 | Outpatient (CLI) | payer BC ==
--- NOTE | 2024-08-09 08:09 | US ---
EXAMINATION TYPE: US liver DATE OF EXAM: 08/09/2024 COMPARISON: US liver February 14, 2023 & [address] 2019 CLINICAL INDICATION: Male, 59 years old with history of C69.32 MALIGNANT NEOPLASM OF LEFT CHOROID; Ca ncer of left eye, assess liver, known cysts TECHNIQUE: Grayscale and color Doppler imaging of the right upper quadrant was performed. FINDINGS: EXAM MEASUREMENTS: Liver Length: 15.2 cm Gallbladder Wall: 0.3 cm CBD: 0.3 cm Right Kidney: 13.0 x 5.2 x 5.1 cm DUPLICATION SPECIALIST NOTES: Pancreas: wnl, tail obscured by overlying bowel gas Liver: Multiple cystic lesions as visualized on prior: Left lobe= 2.4 x 1.5 x 2.0 cm Right lobe anterior to GB= 1.5 x 0.9 x 1.3 cm Right dome (difficult to visualize) = 2.0 x 1.5 cm Gallbladder: Echogenic focus anterior wall as visualized on prior, unchanged Evidence for sonographic Mendoza's sign: No CBD: wnl Right Kidney: Cystic lesion upper/mid pole as visualized on prior= 2.0 x 1.9 x 1.9 cm Liver is heterogeneously hyperechoic. Evaluation for focal masses suboptimal due to the heterogeneity . IMPRESSION: Liver is heterogeneously hyperechoic consistent with diffuse fatty infiltration and/or un derlying hepatocellular disease. There are several simple-appearing thin-walled cysts redemonstrated. No suspicious new solid masses or biliary dilatation. No ascites. No significant change from most re cent prior ultrasound. [facility], , 08/09/2024 8:06 AM
== END | disposition home or self-care (01) ==
LOC: RADUSWWP 07:20
PROVIDERS: ATTEND Ophthalmology
DX: C69.32 Malignant neoplasm of left choroid (principal); K76.89 Other specified diseases of liver
CPT/HCPCS: 76705

== ENCOUNTER → 2024-09-09 | Outpatient (CLI) | payer BC ==
[2024-09-09 10:10] LABS: Basophils # (A) 0.06 X 10*3/uL (0.00-0.10); Basophils % (A) 0.8 %; Eosinophils % (A) 5.5 %; HGB 15.7 g/dL (13.0-17.0); Lymphocytes # (A) 1.71 X 10*3/uL (0.90-5.00); Lymphocytes % (A) 23.7 %; MCH 29.2 pg (27.0-32.0); MCHC 33.4 g/dL (32.0-37.0); MCV 87.4 FL (80.0-97.0); Mean Platelet Volume 10.4 FL (9.5-12.2); Monocytes # (A) 0.56 X 10*3/uL (0.20-1.00); Monocytes % (A) 7.7 %; NRBC Per 100 WBC 0 X 10*3/uL (0.00-0.01); Neutrophils # (A) 4.47 X 10*3/uL (1.80-7.70); Neutrophils % (A) 61.9 %; Platelet Count 203 X 10*3/uL (140-440); RBC 5.38 X 10*6/uL (4.40-5.60); RDW 11.9 % (11.5-14.5); WBC 7.23 X 10*3/uL (4.50-10.00)
[2024-09-09 10:37] LABS: ALT 24 U/L (10-49); AST 24 U/L (14-35); Albumin 4.3 g/dL (3.8-4.9); Albumin/Globulin Ratio 1.79 Ratio (1.60-3.17); Alkaline Phosphatase 76 U/L (41-126); Blood Urea Nitrogen 16.8 mg/dL (9.0-27.0); Calcium 9.2 mg/dL (8.7-10.3); Chloride 107 mmol/L (96-109); Chol/HDL Ratio 3.79 Ratio; Globulin 2.4 g/dL (1.6-3.3); Glucose 122 mg/dL (70-110); Potassium 4.1 mmol/L (3.5-5.5); Prostate Specific Antigen 0.53 ng/mL (0.000-4.500); Sodium 145 mmol/L (135-145); Total Bilirubin 0.7 mg/dL (0.3-1.2); Total Protein 6.7 g/dL (6.2-8.2)
== END | disposition home or self-care (01) ==
LOC: LABWHC1 07:06
PROVIDERS: ATTEND Family Medicine
DX: Z00.00 Encounter for general adult medical examination without abnormal findings (principal); Z12.5 Encounter for screening for malignant neoplasm of prostate; I10 Essential (primary) hypertension; E78.00 Pure hypercholesterolemia, unspecified
CPT/HCPCS: 36415; 80053; 80061; 84153; 84443; 85025